=== PATIENT | female | born 1985 | race Two or more races ===

== ENCOUNTER 2020-01-18 12:24 | Emergency (ER) | payer MEDICAID, OTHER ==
[~2020-01-18] VITALS: Ht 157.5 cm; Wt 59.4 kg
[2020-01-18 16:58] VITALS: BP 115/67
== END 2020-01-18 17:02 | disposition home or self-care (01) ==
LOC: ER 12:24
DX: J06.9 Acute upper respiratory infection, unspecified (principal)